=== PATIENT | female | born 1965 | race Caucasian/White ===

== ENCOUNTER 2020-04-27 14:17 | Emergency (ER) | payer OTHER, BC ==
--- NOTE | 2020-04-27 15:17 | EDM.PDOC ---
ED HPI GENERAL MEDICAL PROBLEM - General Chief Complaint: Upper Extremity Injury/Pain Stated Complaint: FINGER INJURY LEFT HAND Time Seen by Provider: 04/27/20 14:23 Source of Information: Reports: Patient History Limitations: Reports: No Limitations - History of Present Illness INITIAL COMMENTS - FREE TEXT/NARRATIVE: 54-year-old female presents with left fourth digit injury after jamming it on a cart at work at 11 AM today. She is right-handed. Pain is localized to the left fourth digit maximally at the PIP joint, described as sharp, severe, radiates to the distal metacarpal and DIP joint. Alleviated with immobilization, exacerbated with range of motion. ROS: A 10-point review of systems, other than pertinent positives and negatives as stated per HPI, is otherwise negative Past medical history: No additional pertinent history Past Surgical history: No additional pertinent history Social history: No additional pertinent history Family history: No additional pertinent history PHYSICAL EXAM General: AOx4, GCS = 15, moderate distress HEENT: dry mucous membrane Neck: supple, no meningismus, no Kernig or Brudzinski Cardiac: S1S2 RRR Respiratory: CTAB, no crackles or rales, no wheezing Abdomen: Soft, nontender, no rebound or guarding, nondistended, no pulsatile mass. Back: nontender Musculoskeletal: NVI distally, left fourth digit TTP to PIP joint and middle phalanx and proximal phalanx, pain against active resistance at the PIP joint with flexion and extension and opposition. No deformity Neuro: No focal deficits, CN 2 - 12 WNL. L ring finger Pain Score (Numeric/FACES): 8 - Related Data Allergies Allergy/AdvReac Type Severity Reaction Status Date / Time acetaminophen [From Percocet] Allergy Rash Verified 04/27/20 14:28 oxycodone [From Percocet] Allergy Rash Verified 04/27/20 14:28 propoxyphene Allergy Rash Verified 04/27/20 14:28 [From Darvocet-N] Home Meds: Home Meds Levothyroxine 04/27/20 [History] Naproxen [Naprosyn] 500 mg PO Q12HR #30 tab 04/27/20 [Rx] Past Medical History [employer] S[employer]ER History: Reports: Other [employer] S[employer] OFFBEARER History: x3 Other Musculoskeletal History: torn meniscus Endocrine/Metabolic History: Reports: Hypothyroidism - Infectious Disease History Infectious Disease History: Reports: Chicken Pox - Past Surgical History GI Surgical History: Reports: Cholecystectomy, Hernia, Abdominal Female Surgical History: Reports: Hysterectomy Social & Family History - Family History Family Medical History: No Pertinent Family History - Caffeine Use Caffeine Use: Reports: Coffee - Recreational Drug Use Recreational Drug Use: No Review of Systems - Review of Systems Review Of Systems: See Below (see dictation) ED EXAM, GENERAL - Physical Exam Exam: See Below (see dictation) ED TRAUMA EXTREMITY PROCEDURES - Splinting Left 4th Digit Pre-Procedure NV Status: Normal Post-Procedure NV Status: Normal Splint Material: Aluminum-Foam Applied & Form Fitted By: Nurse Provider Post-Splint Application NV Check: NV Status Normal, Good Position Complications: No Course - Vital Signs Last Recorded V/S: Last Vital Signs Temp 96.7 F L 04/27/20 14:29 Pulse 76 04/27/20 14:29 Resp 18 04/27/20 14:29 BP 118/92 H 04/27/20 14:29 Pulse Ox 95 04/27/20 14:29 - Orders/Labs/Meds Orders: Active Orders 24 hr Category Date Time Status DME for Discharge [COMM] Stat Oth 04/27/20 15:21 Ordered - Re-Assessments/Exams Free Text/Narrative Re-Assessment/Exam: 04/27/20 1610 After finger splint in the ER, the patient improved and is currently stable for discharge. I performed a repeat exam and did not appreciate new abnormal findings. Patient exhibits normal vital signs and has a normal gait on road test. I advised the patient to return to the ER for reevaluation if symptoms worsened, including fever, worsening pain, or any other worrisome symptoms. I instructed the patient to follow up with orthopedic hand at [facility] within 2-3 days. MEDICAL DECISION MAKING: I reviewed the patients past medical records, lab and radiographic findings. I discussed the case with the patient. My differential diagnosis included: Tendon injury, fracture, dislocation. Patient likely sustained tendon injury causing pain with range of motion, x-ray demonstrates no fracture or dislocation. Patient was placed in a aluminum foam splint. Patient is NVI distally. Instructed to follow-up with orthopedic hand in 2 to 3 days. Departure - Departure Time of Disposition: 15:24 Disposition: Home, Self-Care 01 Condition: Good Clinical Impression: Sprain of finger of left hand - Discharge Information *PRESCRIPTION DRUG MONITORING PROGRAM REVIEWED*: Not Applicable *COPY OF PRESCRIPTION DRUG MONITORING REPORT IN PATIENT DENICE: Not Applicable Prescriptions: Naproxen [Naprosyn] 500 mg PO Q12HR #30 tab Instructions: How to Use Cold Therapy, [id number], Cast or Splint Care, Adult, [id number], Finger Sprain, Adult, [id number] Referrals: Judie Escamilla [Ordering Only Provider] - 1 Week J Carlos Coker MD [Ordering Only Provider] - 1 Week Forms: ED Department Discharge Additional Instructions: The need for follow-up, as well as the timing and circumstances, are variable depending upon the specifics of your emergency department visit. If you don't have a primary care physician on staff, we will provide you with a referral. We always advise you to contact your personal physician following an emergency department visit to inform them of the circumstance of the visit and for follow-up with them and/or the need for any referrals to a consulting specialist. The emergency department will also refer you to a specialist when appropriate. This referral assures that you have the opportunity for follow-up care with a specialist. All of these measure are taken in an effort to provide you with optimal care, which includes your follow-up. Under all circumstances we always encourage you to contact your private physician who remains a resource for coordinating your care. When calling for follow-up care, please make the office aware that this follow-up is from your recent emergency room visit. If for any reason you are refused follow-up, please contact the [facility] Emergency Department at and asked to speak to the emergency department charge nurse. Please follow-up with the orthopedic surgeons at [facility] within 1 week Sepsis Event Note (ED) - Evaluation Sepsis Screening Result: No Definite Risk - Focused Exam Vital Signs: Vital Signs Temp Pulse Resp BP Pulse Ox 04/27/20 14:29 96.7 F L 76 18 118/92 H 95 - My Orders Last 24 Hours: My Active Orders 04/27/20 15:21 DME for Discharge [COMM] Stat - Assessment/Plan Last 24 Hours: My Active Orders 04/27/20 15:21 DME for Discharge [COMM] Stat
--- NOTE | 2020-04-27 15:45 | CR ---
Indication: Left hand pain Comparison: None available. Technique: AP, Lateral, and Oblique views left hand were obtained Findings: There is no displaced fracture or dislocation. Minimal degenerative changes of the interphalangeal joints are appreciated. The soft tissues are unremarkable. Impression: Mild degenerative changes of the interphalangeal joints without evidence of displaced fracture. Dictated by Jose Phelan MD @ Apr 27 2020 3:42PM Signed by Dr. Jose Phelan @ Apr 27 2020 3:44PM
[2020-04-27] MEDS ORDERED: Naproxen 500 MG Tab PO ONE (16:12)
== END 2020-04-27 16:35 | disposition home or self-care (01) ==
LOC: MW.ED 14:17
DX: S63.615A Unspecified sprain of left ring finger, initial encounter (principal); E03.9 Hypothyroidism, unspecified; Z88.6 Allergy status to analgesic agent; Z88.5 Allergy status to narcotic agent; Z79.899 Other long term (current) drug therapy; W23.0XXA Caught, crushed, jammed, or pinched between moving objects, initial encounter; Y99.0 Civilian activity done for income or pay
CPT/HCPCS: 73130; 99283; A9270